=== PATIENT | female | born 1995 | race African-American/Black ===

== ENCOUNTER 2019-08-18 16:42 | Emergency (ER) | payer SELFPAY ==
--- NOTE | 2019-08-18 17:45 | EDM.PDOC ---
ED HPI GENERAL MEDICAL PROBLEM - General Chief Complaint: Chest Pain Stated Complaint: COUGH/SORE THROAT Time Seen by Provider: 08/18/19 17:08 Source of Information: Reports: Patient History Limitations: Reports: No Limitations - History of Present Illness INITIAL COMMENTS - FREE TEXT/NARRATIVE: Ms. Lara is a very pleasant 23-year-old woman with no significant past medical history, who states that she developed chills and shivers, a sore throat , lightheadedness, headaches, and nausea on 08/15/2019. She had sharp epigastric pain lasting about one hour on Tuesday only. Her headache is bifrontal extend to the ears. It is unaffected by position. She states that she had one day of rhinorrhea, but denies sinus congestion. She also reports neck and upper back pain since morning, 08/16/2019, and she has had a dry cough since yesterday. No recent fever, emesis, constipation, diarrhea, or urinary symptoms. No prior similar symptoms. The patient states that she took aspirin on 08/15/2019, then Tylenol yesterday and today, Here in the ED, the patient is found to be afebrile and hemodynamically stable, with normal oxygenation. The patient's PCP is in [place]. She is visiting this area until , 08/23/2019. She has not received an influenza vaccine this season. Chest Pain Score (Numeric/FACES): 6 - Related Data Allergies Allergy/AdvReac Type Severity Reaction Status Date / Time No Known Allergies Allergy Verified 08/18/19 17:07 Home Meds: Home Meds . [No Known Home Meds] 08/18/19 [History] Past Medical History Endocrine/Metabolic History: Reports: Obesity/BMI 30+ Social & Family History - Family History Family Medical History: Noncontributory - Tobacco Use Smoking Status *Q: Never Smoker - Caffeine Use Caffeine Use: Reports: Coffee, Energy Drinks, Soda, Tea - Alcohol Use Alcohol Use History: Yes Alcohol Use Frequency: Socially - Recreational Drug Use Recreational Drug Use: No - Living Situation & Occupation Living situation: Reports: Single, with Significant Other (Fiance), with Family (1 daughter) Occupation: Unemployed ED ROS GENERAL - Review of Systems Review Of Systems: ROS reveals no pertinent complaints other than HPI. ED EXAM, GENERAL - Physical Exam Exam: See Below Exam Limited By: No Limitations General Appearance: Alert, WD/WN, No Apparent Distress Eye Exam: Bilateral Eye: EOMI, Normal Inspection Ears: Normal External Exam, Normal Canal, Hearing Grossly Normal, Normal TMs Nose: Normal Inspection, Normal Mucosa, No Blood Throat/Mouth: Normal Inspection, Normal Lips, Normal Teeth, Normal Gums, Normal Oropharynx (Including small, normal-appearing tonsils. No oropharyngeal erythema.), Normal Voice, No Airway Compromise Head: Atraumatic, Normocephalic Neck: Normal Inspection, Supple, Non-Tender, Full Range of Motion. No: Lymphadenopathy (L), Lymphadenopathy (R) Respiratory/Chest: No Respiratory Distress, Lungs Clear, Normal Breath Sounds, No Accessory Muscle Use. No: Decreased Breath Sounds, Crackles, Rhonchi, Wheezing, Stridor, Prolonged Expiration Cardiovascular: Normal Peripheral Pulses, Regular Rate, Rhythm, No Edema, No Gallop, No JVD, No Murmur, No Rub Peripheral Pulses: 4+: Radial (L), Radial (R) GI/Abdominal: Normal Bowel Sounds, Soft, Non-Tender (Including in the epigastrium), No Organomegaly, No Distention, No Abnormal Bruit, No Mass (Female) Exam: Deferred Rectal (Female) Exam: Deferred Back Exam: Normal Inspection, Full Range of Motion. No: CVA Tenderness (L), CVA Tenderness (R) Extremities: Normal Inspection, Normal Range of Motion, No Pedal Edema, Normal Capillary Refill Neurological: Alert, Oriented, Normal Cognition, No Motor/Sensory Deficits Psychiatric: Normal Affect Skin Exam: Warm, Dry, Intact, Normal Color, No Rash Course - Vital Signs Last Recorded V/S: Last Vital Signs Temp 36.7 C 08/18/19 17:05 Pulse 67 08/18/19 17:05 Resp 19 08/18/19 17:05 BP 121/73 08/18/19 17:05 Pulse Ox 98 08/18/19 17:05 Orthostatic Blood Pressure [ 130/72 Standing] Orthostatic Blood Pressure [ 120/72 Sitting] Orthostatic Blood Pressure [ 117/66 Supine] - Orders/Labs/Meds Labs: Laboratory Tests 08/18/19 08/18/19 Range/Units 18:00 18:00 WBC 5.48 (3.98-10.04) K/mm3 RBC 4.55 (3.98-5.22) M/mm3 Hgb 13.3 (11.2-15.7) gm/dl Hct 41.7 (34.1-44.9) % MCV 91.6 (79.4-94.8) fl MCH 29.2 (25.6-32.2) pg MCHC 31.9 L (32.2-35.5) g/dl RDW Std Deviation 43.3 (36.4-46.3) fL Plt Count 300 (182-369) K/mm3 MPV 11.4 (9.4-12.3) fl Neutrophils % (Manual) 57 (40-60) % Band Neutrophils % 0 (0-10) % Lymphocytes % (Manual) 36 (20-40) % Atypical Lymphs % 0 % Monocytes % (Manual) 3 (2-10) % Eosinophils % (Manual) 3 (0.7-5.8) % Basophils % (Manual) 1 (0.1-1.2) Platelet Estimate Adequate Plt Morphology Comment Normal RBC Morph Comment Normal Sodium 139 (136-145) mEq/L Potassium 3.9 (3.5-5.1) mEq/L Chloride 102 (98-107) mEq/L Carbon Dioxide 28 (21-32) mEq/L Anion Gap 12.9 (5-15) BUN 8 (7-18) mg/dL Creatinine 0.7 (0.55-1.02) mg/dL Est Cr Clr Drug Dosing 94.32 mL/min Estimated GFR (MDRD) > 60 (>60) mL/min BUN/Creatinine Ratio 11.4 L (14-18) Glucose 88 (74-106) mg/dL Calcium 9.1 (8.5-10.1) mg/dL Total Bilirubin 0.3 (0.2-1.0) mg/dL AST 19 (15-37) U/L ALT 23 (14-59) U/L Alkaline Phosphatase 81 (46-116) U/L Total Protein 7.6 (6.4-8.2) g/dl Albumin 4.0 (3.4-5.0) g/dl Globulin 3.6 gm/dL Albumin/Globulin Ratio 1.1 (1-2) Lipase 137 (73-393) U/L - Re-Assessments/Exams Free Text/Narrative Re-Assessment/Exam: 08/18/19 17:42 The patient appears to have a number of relatively mild symptoms, and her physical exam is completely benign. Because of her complaint of lightheadedness , I have ordered orthostatics, along with a CBC and CMP. Because of her report of a dry cough, I have ordered a chest x-ray, because of her report of a sore throat, I have ordered a rapid strep test, and because of her report of epigastric pain, I have ordered a lipase level. The patient has an IUD, and had a negative urine test yesterday; I don 't see the need to repeat it again, and she denies urinary symptoms, therefore I don't see an indication for a urinalysis. 08/18/19 19:06 The patient is not orthostatic. 2-view chest radiograph appears to be grossly normal. The cardiac silhouette is within normal limits. No pulmonary vascular congestion. No pleural effusions. No focal infiltrate. No pneumothorax. Formal read per the Radiologist pending. The patient's CBC is unremarkable. Her CMP is unremarkable. Her lipase levels within normal limits at 137. Her rapid strep test is negative. 08/18/19 19:12 Test results discussed with the patient. As above, today's workup is entirely unremarkable, and does not explain the cause of her symptoms. I suspect that the patient is suffering from a viral URI, and, unfortunately, I have no specific recommendations for treatment. If her symptoms persist, I would like her to follow-up either in our clinic, or with her PCP back home in [place]. Departure - Departure Time of Disposition: 19:13 Disposition: Home, Self-Care 01 Condition: Good Clinical Impression: Malaise - Discharge Information *PRESCRIPTION DRUG MONITORING PROGRAM REVIEWED*: Not Applicable *COPY OF PRESCRIPTION DRUG MONITORING REPORT IN PATIENT NUPUR: Not Applicable Instructions: Weakness, [id number] Referrals: PCP,None [Primary Care Provider] - Forms: ED Department Discharge Additional Instructions: You were seen in the emergency room for shivers, sore throat, feeling lightheaded, headache, abdominal pain, nausea, neck and upper back pain, and a dry cough. Workup in the ER included blood work, a rapid strep test, a chest x-ray, and positional blood pressure checks. Your entire workup was unremarkable, and does not explain the cause of your symptoms. As discussed, we cannot say what is the cause of your symptoms, but we can't say what you don't have; you are not anemic. You do not have pneumonia. You do not have strep throat. You do not have pancreatitis. You are not dehydrated. Based on your history, physical exam, and ER tests, we suspect that you may be suffering from a viral URI, also known as a common cold. Unfortunately, there are no medicines to treat a common cold - it will have to run its course. If your symptoms persist, please follow-up in the clinic or with your own PCP in [place] once you return home. If any other problems, please do not hesitate to return to the ER.
--- NOTE | 2019-08-18 19:03 | CR ---
Chest: 2 views of the chest were obtained. Comparison: No previous chest x-ray. Heart size and mediastinum are normal. Lungs are clear. Bony structures are unremarkable. Impression: 1. Nothing acute is seen on 2 view chest x-ray. Diagnostic code #1
== END 2019-08-18 19:44 | disposition home or self-care (01) ==
LOC: JD.ED 16:42
DX: R53.81 Other malaise (principal); R42 Dizziness and giddiness; R05 Cough; J02.9 Acute pharyngitis, unspecified; R10.13 Epigastric pain; E66.9 Obesity, unspecified; Z68.31 Body mass index [BMI] 31.0-31.9, adult
CPT/HCPCS: 36415; 71046; 71046-26; 80053; 83690; 85007; 85027; 87081; 87430; 99283-25